=== PATIENT | male | born 1975 | race Caucasian/White ===

== ENCOUNTER 2017-02-06 08:07 | Inpatient (IN) | payer BC ==
[2017-02-06] VITALS (20 sets, daily range): BP systolic 110–160; BP diastolic 64–89; PULSE 56–92; RESP 6–18; Ht 170.2 cm; Wt 80.8 kg
[~2017-02-06] VITALS: Ht 170.2 cm; Wt 80.8 kg
[~2017-02-06 08:07] MED LIST: RAMI5CAP46 PO
[2017-02-06] MEDS ORDERED: LACTATED RINGER'S 1,000 ML IV* SCH (08:30)
[2017-02-06] MEDS ORDERED: CEFAZOLIN 2 GM/50 ML (PMX) 50 ML IVPB ONE (08:30)
[2017-02-06] MEDS ORDERED: AMLO-147 PO (08:34)
[2017-02-06] MEDS ORDERED: RAMI5CAP46 PO (08:49)
[2017-02-06] MEDS ORDERED: HYDR12.58 PO (08:50)
--- NOTE | 2017-02-06 11:37 | HPN ---
Date/Time of Note Date/Time of Note DATE: 02/06/17 TIME: 11:37 Interval H&P Admission Note Pt. seen H&P reviewed: No system changes MICHAEL GEORGE PA-C February 06, 2017 11:37
[2017-02-06] MEDS ORDERED: NALOXONE (0.4 MG/ML) INJ IV PRN (12:00)
[2017-02-06] MEDS ORDERED: ONDANSETRON 4 MG INJ IV PRN ×2 (12:00→15:00)
[2017-02-06] MEDS ORDERED: ACETAMINOPHEN 325 MG TAB PO PRN (12:00)
[2017-02-06] MEDS ORDERED: DIPHENHYDRAMINE 50 MG INJ IV PRN ×2 (12:00→15:00)
[2017-02-06] MEDS ORDERED: AL HYDROX/MG HYDROX/SIMETH 30 ML CUP PO PRN (12:00)
[2017-02-06] MEDS ORDERED: BISACODYL 10 MG SUPP PR PRN (12:00)
[2017-02-06] MEDS ORDERED: CYCLOBENZAPRINE 10 MG TAB PO PRN (12:00)
[2017-02-06] MEDS ORDERED: ZOLPIDEM 5 MG TAB PO PRN (12:00)
[2017-02-06] MEDS ORDERED: CEPASTAT LOZENGE MT PRN (12:00)
[2017-02-06] MEDS ORDERED: BUPIVACAINE 0.25% (MPF) 30 ML INJ ONE (12:04)
[2017-02-06] MEDS ORDERED: GELATIN SIZE 100 SPONGE ONE (12:04)
[2017-02-06] MEDS ORDERED: THROMBIN 5000 UNIT VIAL ONE ×2 (12:05→13:01)
[2017-02-06] MEDS ORDERED: POLYMYXIN/BACITRACIN 1L IRRIG ONE (12:11)
[2017-02-06] MEDS ORDERED: SURGIFOAM POWDER 1 GM KIT ONE (12:11)
[2017-02-06] MEDS ORDERED: PROPOFOL 20 ML ONE (12:17)
[2017-02-06] MEDS ORDERED: FENTAnyl 50 MCG/ML VIAL ONE (12:18)
[2017-02-06] MEDS ORDERED: LIDOCAINE 2% (SDV) 5 ML INJ ONE (12:18)
[2017-02-06] MEDS ORDERED: CEFAZOLIN 1 GM INJ ONE (12:21)
[2017-02-06] MEDS ORDERED: DEXAMETHASONE 4 MG/ML 1 ML INJ ONE (12:21)
[2017-02-06] MEDS ORDERED: BUPIVACAINE 0.25%/EPI (SDV) 30 ML INJ ONE (12:35)
[2017-02-06] MEDS ORDERED: HYDROmorphONE 2 MG/ML SYG ONE (12:44)
[2017-02-06] MEDS ORDERED: CA CHLORIDE 10% 10 ML SYRINGE ONE (13:01)
[2017-02-06] MEDS ORDERED: BUPIVACAINE 0.25%/EPI (SDV) 30 ML INJ INJ ONE (13:23)
[2017-02-06] MEDS ORDERED: ONDANSETRON 4 MG INJ ONE (14:35)
[2017-02-06] MEDS ORDERED: BUPIVACAINE 0.25% (MPF) 30 ML INJ INJ ONE (14:59)
[2017-02-06] MEDS ORDERED: MEPERIDINE 25 MG INJ IV PRN (15:00)
[2017-02-06] MEDS ORDERED: FENTAnyl 50 MCG/ML VIAL IV PRN ×3 (15:00)
[2017-02-06] MEDS ORDERED: METOCLOPRAMIDE 10 MG INJ IV PRN (15:00)
[2017-02-06] MEDS ORDERED: LABETALOL HCL 20MG INJ IV PRN (15:00)
[2017-02-06] MEDS ORDERED: EPHEDrine SULFATE 50 MG/5 ML SYG IV PRN (15:00)
[2017-02-06] MEDS ORDERED: hydrALAzine 20 MG INJ IV PRN (15:00)
[2017-02-06] MEDS ORDERED: HYDROmorphONE (0.2 MG/ML) 10ML SYG IV PRN ×3 (15:00)
--- NOTE | 2017-02-06 15:01 | RADRPT ---
PROCEDURE: XR Lumbar Spine one view. CLINICAL INDICATION: Low back pain. Intraoperative. TECHNIQUE: Prone portable cross-table lateral. COMPARISON: 02/22/2015. FINDINGS: For the purposes of this report, the last apparent true disc level is considered to be L5-S1. Based on this, the posterior surgical instrument is present overlying the L4-5 level. IMPRESSION: 1. Intraoperative imaging as described above. RPTAT: QQ .Brennen Medina MD, MD Date Time Electronically viewed and signed by .Brennen Medina MD, MD on 02/06/2017 15:01 .R/
[2017-02-06] MEDS: HYDROmorphONE 0.2 MG/ML PCA IV SCH ×2 (15:02→18:31)
[2017-02-06] MEDS: HYDROmorphONE 1 MG/ML SYG IV PRN ×2 (15:09→15:10)
[2017-02-06] MEDS: D5W-0.45 NACL + KCL 20 MEQ 1,000 ML IV SCH ×2 (16:26→22:18)
[2017-02-06] MEDS: CEFAZOLIN 1 GM/50 ML (PMX) 50 ML IVPB SCH ×2 (16:30→20:37)
--- NOTE | 2017-02-06 17:44 | CONS ---
Date/Time of Note Date/Time of Note DATE: 02/06/17 TIME: 17:40 Assessment/Plan Assessment/Plan Problems: (1) Essential hypertension Status: Chronic Comment: He will be resumed on his antihypertensive medications. Please note I may push up on the MADDY inhibitor depending upon how he does during his time here. (2) Overweight Status: Chronic Comment: Will be on a calorie restriction diet (3) Lumbar disc disease Status: Chronic Comment: He is now postop and our expectations he will have a positive result (4) Status post lumbar laminectomy Status: Acute Comment: He is acutely postop and without evidence of complications or morbidities Consultation Date/Type/Reason Admit Date/Time February 06, 2017 at 08:07 Date of Consultation: February 06, 2017 Type of Consultation: Internal medicine Reason for Consultation Hypertension; assist with postop medical management Referring Provider: DAR LEAVITT MD Hx of Present Illness Dominique 41-year-old right-handed male status post repeat lumbar microdiscectomy. Had a prior procedure several years ago but had recurrence of symptoms with evidence of a new protrusion of the disc fragment. He is now postoperative. Patient reports he is concerned that his blood pressure will rise Constitutional: no complaints Eyes: no complaints ENT: no complaints Respiratory: no complaints Cardiovascular: no complaints Gastrointestinal: no complaints Genitourinary: no complaints Musculoskeletal: back pain Skin: no complaints Past Medical History Overweight Medical History: hypertension Past Surgical History Prior lumbar microdiscectomy Past Surgical Hx: appendectomy Family History Significant Family History: diabetes, hypertension Social History Alcohol Use: none Smoking Status: Never smoker Drug Use: none Exam/Review of Systems Vital Signs Vitals Vital Signs Date Time Temp Pulse Resp B/P Pulse Ox O2 Delivery O2 Flow Rate FiO2 02/06/17 17:04 18 02/06/17 16:54 Nasal Cannula 2.0 02/06/17 15:38 60 146/73 100 02/06/17 14:57 97.9 Exam Constitutional: alert, oriented Head: atraumatic, normocephalic Eyes: EOMI, nl conjunctiva, nl lids, nl sclera Neck: non-tender, supple Respiratory: clear to auscultation, normal air movement Cardiovascular: nl pulses, regular rate and rhythm Gastrointestinal: nl liver, spleen, non-tender, soft Musculoskeletal: muscle tone (Normal muscle tone without weakness full range of motion), nl extremities to inspection Extremities: normal pulses Neurological: DIAMOND SANDER II-XII intact, nl mental status, nl speech, nl strength Skin: nl turgor, rash or lesions Medications Medications Current Medications Lactated Ringer's 1,000 ml @ 0 mls/hr Q0M IV* ; Start 02/06/17 at 08:30; Stop 02/06/17 at 19:00 Potassium Chloride/Dextrose/ Sod Cl (D5-1/2ns + KCl 20 Meq) 1,000 ml @ 100 mls/ hr Q10H IV Last administered on 02/06/17 16:26; Admin Dose 100 MLS/HR; Start 02/06/17 at 11:37 Acetaminophen/ Hydrocodone Bitart ([place] (10/325)) 1 tab Q4H PRN PO PAIN LEVEL 1-5; Start 02/07/17 at 10:00 Acetaminophen/ Hydrocodone Bitart ([place] (10/325)) 2 tab Q4H PRN PO PAIN LEVEL 6-10; Start 02/07/17 at 10:00 Hydromorphone HCl 0.2 mg 0.2 mg Q1H PRN IV BREAKTHROUGH PAIN Last administered on 02/06/17 15:10; Admin Dose 0.4 MG; Start 02/06/17 at 12:00 Cefazolin Sodium (Ancef 1 Gm/50 ml (Pmx)) 50 ml @ 100 mls/hr Q8H IVPB Last administered on 02/06/17 16:30; Admin Dose 100 MLS/HR; Start 02/06/17 at 12:00 ; Stop 02/07/17 at 04:29 Ondansetron HCl (Zofran Inj) 4 mg Q6H PRN IV NAUSEA AND/OR VOMITING; Start at 12:00 Bisacodyl (Dulcolax Supp) 10 mg DAILY PRN [place] CONSTIPATION; Start 02/06/17 at 12 :00 Docusate Sodium (Colace) 100 mg BID PO ; Start 02/06/17 at 21:00 Al Hydrox/Mg Hydrox/Simethicone (Mag-Al Plus) 15 ml Q6H PRN PO CONSTIPATION/ DYSPEPSIA; Start 02/06/17 at 12:00 Acetaminophen (Tylenol Tab) 650 mg Q4H PRN PO LEGER OR TEMP GREATER THAN 101.3F; Start 02/06/17 at 12:00 Cyclobenzaprine HCl (Flexeril) 10 mg TID PRN PO MUSCLE SPASMS; Start 02/06/17 at 12:00 Phenol (Cepastat Lozenge) 1 lozenge PRN PRN [place] SORE THROAT; Start 02/06/17 at 12:00 Diphenhydramine HCl (Benadryl) 25 mg Q6H PRN IV ITCHING; Start 02/06/17 at 12: 00 Naloxone HCl (Narcan) 0.2 mg Q2M PRN IV RR 8 BREATHS/MIN OR LESS; Start at 12:00 Hydromorphone HCl (Dilaudid BUSINESS ACCOUNT MANAGER) BUSINESS ACCOUNT MANAGER to be started in PACU Q4PCA IV Last administered on 02/06/17t 15:02; Admin Dose 6 MG; Start 02/06/17 at 12:00; Stop 02/07/17 at 10:00 Miscellaneous Information 1. Hold BUSINESS ACCOUNT MANAGER at 1,000... BUSINESS ACCOUNT MANAGER IV ; Start 02/06/17 at 12: 00 VALENTIN ALVARADO MD February 06, 2017 17:44
[2017-02-06] MEDS: AMLODIPINE 5 MG TAB PO SCH (18:00)
[2017-02-06] MEDS: LISINOPRIL 20 MG TAB PO SCH (18:22)
--- NOTE | 2017-02-06 19:00 | OPR ---
DATE OF OPERATION: PREOPERATIVE DIAGNOSIS: Recurrent left L4 to L5 disk extrusion with radiculopathy. POSTOPERATIVE DIAGNOSIS: Recurrent left L4 to L5 disk extrusion with radiculopathy. OPERATION PERFORMED: 1. Revision left L4 to L5 lumbar microdiskectomy. 2. Use of operative microscope. 3. Intraoperative neuromonitoring (1 hour 45 minutes). 4. X-ray. PRIMARY SURGEON: Franck Booth MD MOVABLE BULKHEAD INSTALLER: YULIA Romero NEED FOR EVS ATTENDANT: During this spinal surgical procedure, my operator/assistant foreman was used to retrac t and protect the spinal nerves and dural sac. My operator/assistant foreman also employed the suction catheters to evacuate blood from the surgical field to improve visualization of the neural structures. The chanda tant was medically necessary to facilitate the completion of the surgery in a safe and expeditious m kaitlyn. [facility] [place] regulations, as well as hospital bylaws, preclude the use of non-license d health care personnel, such as operating room technicians, to perform these functions. FINDINGS: There is left-sided recurrent disk extrusion at L4 to L5. Nerve signals at the start of the case revealed left L4 amplitude down 30%, left L5 amplitude down 50%. At the end of the case, n erve signals returned to normal. ESTIMATED BLOOD LOSS: Less than 30 mL. DRAINS: None. SPECIMENS: L4 to L5 disk. COMPLICATIONS OF PROCEDURES: None. ANESTHESIOLOGIST: Dr. White. TYPE OF ANESTHESIA: General. INDICATIONS FOR PROCEDURE: This is a 41-year-old gentleman with left lumbosacral radiculopathy in t he setting of a recurrent disk extrusion. He failed nonoperative measures and therefore is recommen ded that he undergo the above surgery. Preoperatively, we discussed the risks, benefits, and altern atives. He understood and wished to proceed. DESCRIPTION OF PROCEDURE IN DETAIL: The patient was identified in the preoperative holding area, [facility], taken to the operating room, where he was successfully placed under general an esthesia. Neuromonitoring leads were placed, sequential compressive devices were applied. Neuromon itoring was utilized during the procedure for 1 hour 45 minutes to include SSEP, MEP, and EMG. This was performed by [facility]. Start time was 1 p.m., closure time was 2:45 p.m. The patient was placed on the operating table in the prone position over a Jason frame. All bony prominences w ere well padded. I injected the paraspinal musculature with 0.25% Marcaine and epinephrine. I utilized the patient's previous incision. I incised down to the dorsal fascia, which was incised with Bovie cautery. I then subperiosteally dissected the left L4 and L5 lamina. I placed a Kerriso n under what was felt to be the L4 lamina and a lateral film obtained to confirm the correct level. Once this was confirmed, I performed a revision left-sided hemilaminotomy with partial medial facet ectomy using curettes, high-speed bur and Kerrison punches. I identified the dura and the traversin g nerve root. I was able to peel the scar tissue off the annulus, make an annulotomy, remove the ex truded fragments. I also entered the disk space and removed multiple fragments within the disk spac e. Once this was done, all nerve signals returned to normal. I irrigated the wound and disk space. Hemostasis was achieved with bipolar cautery and Surgifoam. Valsalva maneuver was performed and t here was no leak of CSF. The anesthesiologist vince peripheral blood, which was spun down using the Desi Hits device. I took t he platelet-poor plasma mixed with thrombin, injected this over the dura for hemostatic purposes. I then injected the paraspinal musculature with plain Marcaine. I removed the retractors and closed the deep fascia with #1 Vicryl stitch. I closed subcutaneous tissue with 2-0 Vicryl stitch. Micros cope was taken off the field. A 4-0 Monocryl closure was then performed. Dermabond was then applie d. The patient was then awakened from anesthesia and taken to recovery in stable condition. Lap, s ponge and needle counts were correct x2. There were no apparent complications during the procedure. The patient will be admitted to the [facility]opedic [facility] for routine postoperative care to include pain c ontrol, neurovascular checks, antibiotics, and physical therapy. Dictated By: FRANCK WISDOM/LAI Conf#: [id number] DID#: [id number]
[2017-02-06] MEDS: DOCUSATE SODIUM 100 MG CAP PO SCH (20:37)
[2017-02-07] MEDS: CEFAZOLIN 1 GM/50 ML (PMX) 50 ML IVPB SCH (04:07)
[2017-02-07 05:06] LABS: ADD SCAN DIFF NO; BASOPHILS % 0.2 % (0.0-2.0); HEMATOCRIT 37.2 % (42.0-52.0); HEMOGLOBIN 12.6 g/dl (14.0-18.0); LYMPHOCYTES # 1.7 10^3/ul (0.8-2.9); LYMPHOCYTES % 11.3 % (15.0-51.0); MEAN CORPUSCULAR HEMOGLOBIN 28.4 pg (29.0-33.0); MEAN CORPUSCULAR HGB CONC 33.9 g/dl (32.0-37.0); MEAN PLATELET VOLUME 10.7 fl (7.4-10.4); MONOCYTE # 1.2 10^3/ul (0.3-0.9); MONOCYTES % 8.4 % (0.0-11.0); NEUTROPHIL # 11.6 10^3/ul (1.6-7.5); NEUTROPHILS % 79.6 % (39.0-77.0); PLATELET COUNT 221 10^3/UL (140-415); RED BLOOD COUNT 4.43 10^6/ul (4.70-6.10); RED CELL DISTRIBUTION WIDTH 13.5 % (11.5-14.5); WHITE BLOOD COUNT 14.6 10^3/ul (4.8-10.8)
[2017-02-07 05:25] LABS: POTASSIUM 3.3 mmol/L (3.5-5.1)
[2017-02-07 05:28] LABS: CREATININE 0.61 mg/dl (0.61-1.24)
[2017-02-07 05:29] LABS: CALCIUM 8.7 mg/dl (8.4-10.2); MAGNESIUM 1.9 mg/dl (1.7-2.5)
[2017-02-07] MEDS: HYDROmorphONE 0.2 MG/ML PCA IV SCH (07:00)
[2017-02-07] MEDS: D5W-0.45 NACL + KCL 20 MEQ 1,000 ML IV SCH (07:37)
[2017-02-07 08:06] VITALS: BP 135/68; RESP 18
--- NOTE | 2017-02-07 08:25 | OPPN ---
Date/Time of Note Date/Time of Note DATE: 02/07/17 TIME: 08:25 Post-Anesthesia Notes Post-Anesthesia Note Last documented vital signs Vital Signs Date Time Temp Pulse Resp B/P Pulse Ox O2 Delivery O2 Flow Rate FiO2 02/07/17 08:06 98.8 74 18 135/68 98 02/06/17 19:59 Room Air 02/06/17 18:30 2.0 Activity: WNL Respiratory function: WNL Cardiovascular function: WNL Mental status: Baseline Pain reasonably controlled: Yes Hydration appropriate: Yes Nausea/Vomiting absent: Yes CHANTE CARDENAS February 07, 2017 08:25
[2017-02-07] MEDS: DOCUSATE SODIUM 100 MG CAP PO SCH (09:00)
[2017-02-07] MEDS ORDERED: HYDROCHLOROTHIAZIDE 12.5 MG CAP PO SCH (09:00)
[2017-02-07] MEDS: AMLODIPINE 5 MG TAB PO SCH (09:01)
[2017-02-07] MEDS: LISINOPRIL 20 MG TAB PO SCH (09:01)
[2017-02-07] MEDS ORDERED: HYDROCODONE/APAP (10/325) TAB PO PRN ×2 (10:00)
[2017-02-07] MEDS ORDERED: POTASSIUM CHLORIDE (SR) 20 MEQ TAB PO STA (10:41)
--- NOTE | 2017-02-07 10:46 | CONS ---
Date/Time of Note Date/Time of Note DATE: 02/07/17 TIME: 10:45 Assessment/Plan Assessment/Plan Chief Complaint/Hosp Course Dominique 41-year-old right-handed male status post repeat lumbar microdiscectomy. Had a prior procedure several years ago but had recurrence of symptoms with evidence of a new protrusion of the disc fragment. He is now postoperative. Problems: (1) Essential hypertension Status: Chronic Comment: Adequately controlled on current medication regimen. (2) Overweight Status: Chronic Comment: Noted we will use calorie restriction diet (3) Status post lumbar laminectomy Status: Acute Comment: He had urinary retention last night and he is actually still on WAXER right now. I did take out the Sanderson catheter as he is walked with physical therapy and have him move around and trying urinate. If he can void in 6 hours we will perform bladder scan. Consultation Date/Type/Reason Admit Date/Time February 06, 2017 at 08:07 Initial Consult Date 02/06/17 Type of Consultation: Internal medicine Referring Provider: DAR LEAVITT MD 24 HR Interval Summary Constitutional: no complaints (Denies fevers chills or sweats) Detailed Summary Respiratory: no complaints Cardiovascular: no complaints Gastrointestinal: no complaints Genitourinary: other (Had urinary retention) Exam/Review of Systems Vital Signs Vitals Vital Signs Date Time Temp Pulse Resp B/P Pulse Ox O2 Delivery O2 Flow Rate FiO2 02/07/17 08:06 98.8 74 18 135/68 98 02/06/17 19:59 Room Air 02/06/17 18:30 2.0 Intake and Output 02/06/17 02/06/17 02/07/17 15:00 23:00 07:00 Intake Total 1200 ml 430 ml 2050 ml Output Total 40 ml 1400 ml Balance 1160 ml 430 ml 650 ml Exam Constitutional: alert, oriented Neck: non-tender, supple Respiratory: clear to auscultation, normal air movement Cardiovascular: nl pulses, regular rate and rhythm Extremities: normal pulses, other (No Homans sign no palpable cords no tenderness) Results Result Diagram: 02/07/17 0420 02/07/17 0438 Results 24 hrs Laboratory Tests Test 02/07/17 04:20 02/07/17 04:38 White Blood Count 14.6 H Red Blood Count 4.43 L Hemoglobin 12.6 L Hematocrit 37.2 L Mean Corpuscular Volume 84.0 Mean Corpuscular Hemoglobin 28.4 L Mean Corpuscular Hemoglobin Concent 33.9 Red Cell Distribution Width 13.5 Platelet Count 221 Mean Platelet Volume 10.7 H Neutrophils % 79.6 H Lymphocytes % 11.3 L Monocytes % 8.4 Eosinophils % 0.0 Basophils % 0.2 Nucleated Red Blood Cells % 0.0 Neutrophils # 11.6 H Lymphocytes # 1.7 Monocytes # 1.2 H Eosinophils # 0.0 Basophils # 0.0 Nucleated Red Blood Cells # 0.0 Sodium Level 137 Potassium Level 3.3 L Chloride Level 98 Carbon Dioxide Level 27 Anion Gap 15 Blood Urea Nitrogen 11 Creatinine 0.61 Glucose Level 127 Calcium Level 8.7 Magnesium Level 1.9 Medications Medications Current Medications Potassium Chloride/Dextrose/ Sod Cl (D5-1/2ns + KCl 20 Meq) 1,000 ml @ 100 mls/ hr Q10H IV Last administered on 02/06/17 22:18; Admin Dose 100 MLS/HR; Start 02/06/17 at 11:37 Acetaminophen/ Hydrocodone Bitart ([place] (10/325)) 1 tab Q4H PRN PO PAIN LEVEL 1-5; Start 02/07/17 at 10:00 Acetaminophen/ Hydrocodone Bitart ([place] (10/325)) 2 tab Q4H PRN PO PAIN LEVEL 6-10; Start 02/07/17 at 10:00 Hydromorphone HCl (Dilaudid) 0.2 mg Q1H PRN IV BREAKTHROUGH PAIN Last administered on 02/06/17 15:10; Admin Dose 0.4 MG; Start 02/06/17 at 12:00 Ondansetron HCl (Zofran Inj) 4 mg Q6H PRN IV NAUSEA AND/OR VOMITING; Start at 12:00 Bisacodyl (Dulcolax Supp) 10 mg DAILY PRN [place] CONSTIPATION; Start 02/06/17 at 12 :00 Docusate Sodium (Colace) 100 mg BID PO Last administered on 02/07/17 09:00; Admin Dose 100 MG; Start 02/06/17 at 21:00 Al Hydrox/Mg Hydrox/Simethicone (Mag-Al Plus) 15 ml Q6H PRN PO CONSTIPATION/ DYSPEPSIA; Start 02/06/17 at 12:00 Acetaminophen (Tylenol Tab) 650 mg Q4H PRN PO LEGER OR TEMP GREATER THAN 101.3F; Start 02/06/17 at 12:00 Cyclobenzaprine HCl (Flexeril) 10 mg TID PRN PO MUSCLE SPASMS; Start 02/06/17 at 12:00 Phenol (Cepastat Lozenge) 1 lozenge PRN PRN [place] SORE THROAT; Start 02/06/17 at 12:00 Diphenhydramine HCl (Benadryl) 25 mg Q6H PRN IV ITCHING; Start 02/06/17 at 12: 00 Naloxone HCl (Narcan) 0.2 mg Q2M PRN IV RR 8 BREATHS/MIN OR LESS; Start at 12:00 Miscellaneous Information 1. Hold WAXER at 1,000... WAXER IV ; Start 02/06/17 at 12: 00 Hydrochlorothiazide (Hydrochlorothiazide) 12.5 mg QAM PO Last administered on 09:01; Admin Dose 12.5 MG; Start 02/07/17 at 09:00 Amlodipine Besylate (Norvasc) 5 mg DAILY PO Last administered on 02/07/17 09: 01; Admin Dose 5 MG; Start 02/06/17 at 18:00 Lisinopril (Zestril) 20 mg DAILY PO Last administered on 02/07/17 09:01; Admin Dose 20 MG; Start 02/06/17 at 18:00 VALENTIN ALVARADO MD February 07, 2017 10:46
--- NOTE | 2017-02-07 14:05 | DS ---
DATE OF ADMISSION: 02/06/2017 DATE OF DISCHARGE: 02/07/2017 ADMITTING DIAGNOSIS: Recurrent lumbar disk herniation. DISCHARGE DIAGNOSIS: Recurrent lumbar disk herniation. PROCEDURE: The patient was taken to the operating room on February 06 and underwent lumbar revision mi crodiskectomy. HOSPITAL COURSE: The patient admitted to [facility] after undergoing above procedure. His pos toperative course was uncomplicated. By postop day 1, he was deemed stable for discharge with [facility] arranged with the undersigned. Dictated By: DAR LEAVITT MD BB/NTS Conf#: [id number] DID#: [id number]
== END 2017-02-07 15:00 | disposition home or self-care (01) | DRG 520 ==
LOC: REC 08:07 → MS1 15:55
PROVIDERS: ADMIT Specialist; ATTEND Specialist
PROC: 0SB20ZZ Excision of Lumbar Vertebral Disc, Open Approach (ICD-10-PCS; principal; 2017-02-06 10:30)
DX: M51.16 Intervertebral disc disorders with radiculopathy, lumbar region (principal); I10 Essential (primary) hypertension; E66.3 Overweight; Z68.27 Body mass index [BMI] 27.0-27.9, adult
CPT/HCPCS: 72020; 80048; 83735; 85025; 86999; 97116; 97162; 97530; J0690; J1100; J1170; J2175; J2405; J3010; J3480